=== PATIENT | male | born 1960 ===

== ENCOUNTER 2018-03-11 20:11 | Emergency (ER) | payer BC ==
[2018-03-11 20:19] VITALS: O2SAT 98
--- NOTE | 2018-03-11 20:38 | ED PDOC ---
HPI: Trauma/Fall - HPI Time Seen by Provider: 03/11/18 20:21 Chief Complaint (Nursing): Trauma Chief Complaint (Provider): Right Rib Pain, Knee pain History Per: Patient History/Exam Limitations: no limitations Onset/Duration Of Symptoms: Days (x7) Additional Complaint(s): 57 year old male presents to the ED complaining of right sided rib pain and right sided knee pain since last Sunday. Patient states he tripped over some shovels on the floor while at work and fell on his right side. He reports he stopped the fall with his hands and denies head injury or LOC. Persistent symptoms prompted visit. His last dose of Advil was Sunday night with minimal relief. PMD: Gurmeet Tse Past Medical History Reviewed: Historical Data, Nursing Documentation, Vital Signs Vital Signs: Last Vital Signs Temp 98 F 03/11/18 22:02 Pulse 76 03/11/18 22:02 Resp 18 03/11/18 22:02 BP 122/76 03/11/18 22:02 Pulse Ox 98 03/13/18 13:48 - Medical History PMH: Diabetes - Surgical History Other surgeries: Right knee surgery (microscopy) - Family History Family History: States: Unknown Family Hx - Social History Current smoker - smoking cessation education provided: No Alcohol: Social Drugs: Denies - Home Medications Home Medications: Ambulatory Orders Medication Instructions Recorded Acetaminophen [Acetaminophen 8 650 mg PO Q8 PRN #21 tablet.er 03/11/18 Hour] Meloxicam [Mobic] 15 mg PO DAILY PRN #20 tab 03/11/18 - Allergies Allergies/Adverse Reactions: Allergies Allergy/AdvReac Type Severity Reaction Status Date / Time No Known Allergies Allergy Verified 03/11/18 20:19 Review of Systems ROS Statement: Except As Marked, All Systems Reviewed And Found Negative Musculoskeletal: Positive for: Other (Right rib and knee pain) Neurological: Negative for: Other (LOC) Physical Exam - Reviewed Nursing Documentation Reviewed: Yes Vital Signs Reviewed: Yes - Physical Exam Comments: GENERAL APPEARANCE: Patient is awake, alert, oriented x 3, in no acute distress. Resting comfortably and speaking full sentences. SKIN: Warm, dry; (-) cyanosis. ENMT: Mucous membranes moist. Nose: (-) tenderness. No oral trauma. Pharynx clear, uvula midline. Airway patent: (-) stridor. Full ROM of mandible without pain. CHEST AND RESPIRATORY: Diffuse tenderness to anterior right ribs; no ecchymosis or palpable deformity. Lungs: Respirations even nonlabored (-) rales, (-) rhonchi, (-) wheezes; breath sounds equal bilaterally. HEART AND CARDIOVASCULAR: (-) irregularity ABDOMEN AND GI: Soft; (-) tenderness (-) guarding (-) distention. EXTREMITIES: Right knee: Tenderness to the lateral aspect of the right knee; no effusion, skin break, erythema, or crepitus; full ROM with pain on flexion; no instability on valgus stress or varus stress; negative anterior or posterior drawer sign. Sensation intact throughout. (+) distal pulses NEURO AND PSYCH: Mental status as above. Gait: steady. Speech: clear. (-) facial asymmetry (-) focal deficits. Strength 5/5 to bilateral lower extremities. - ECG O2 Sat by Pulse Oximetry: 98 (RA) Pulse Ox Interpretation: Normal Medical Decision Making Medical Decision Making: Initial Impression: Acute knee and rib pain s/p fall; contusions Initial Plan: --Right knee X-ray --Right rib and chest X-ray --Toradol 30mg IM 21:40 Right knee X-ray showed no acute fracture (+) DJD. Right rib and chest X-ray showed no acute fracture. Patient notified official radiology read which will be available within 24 hours. Patient will be notified of any discrepancies via phone. 2200 On re-evaluation, patient reports improvement of symptoms. On exam, patient remains AAOx3, in no acute distress. Lungs clear to auscultation, cardiac RRR, repeat neuro exam shows no focal findings. Vitals stable. RICE encouraged. Lab/Diagnostic results d/w the patient in great detail. Diagnosis of acute knee and rib pain s/p fall, contusion d/w the patient. Based on history, exam and diagnostic results, plan will be for outpatient follow up with PMD/ortho. Patient instructed to follow-up with pmd / referral provided / the clinic in 1- 2 days without fail. Advised to take medication as prescribed. Return to the emergency room at any time for any new or worsening symptoms. Patient states he fully agrees with and understands discharge instructions. States that he agrees with the plan and disposition. Verbalized and repeated discharge instructions and plan. I have given the patient opportunity to ask any additional questions. Scribe Attestation: Documented by Gino Gooden acting as a scribe for Concetta BROWN. Provider Scribe Attestation: All medical record entries made by the Scribe were at my direction and personally dictated by me. I have reviewed the chart and agree that the record accurately reflects my personal performance of the history, physical exam, medical decision making, and the department course for this patient. I have also personally directed, reviewed, and agree with the discharge instructions and disposition. Disposition - Clinical Impression Clinical Impression: Acute knee pain, Osteoarthritis of knee, Rib contusion, Chest wall pain, Fall - Patient ED Disposition Is Patient to be Admitted: No Counseled Patient/Family Regarding: Studies Performed, Diagnosis, Need For Followup, Rx Given - Disposition Referrals: Fly Love MD [Medical Doctor] - Disposition: Routine/Home Disposition Time: 22:01 Condition: STABLE Additional Instructions: The emergency medical care you received today was directed at your acute symptoms. If you were prescribed any medication, please fill it and take as directed. It may take several days for your symptoms to resolve. Return to the Emergency Department if your symptoms worsen, do not improve, or if you have any other problems. Please contact your doctor in 2 days for re-evaluation and follow up / or call one of the physicians/clinics you have been referred to that are listed on the Patient Visit Information form that is included in your discharge packet. Bring any paperwork you were given at discharge with you along with any medications you are taking to your follow up visit. Our treatment cannot replace ongoing medical care by a primary care provider (PCP) outside of the emergency department. Prescriptions: Acetaminophen [Acetaminophen 8 Hour] 650 mg PO Q8 PRN #21 tablet.er PRN Reason: Pain, Moderate (4-7) Meloxicam [Mobic] 15 mg PO DAILY PRN #20 tab PRN Reason: Pain, Moderate (4-7) Instructions: Osteoarthritis, Contusion (DC), Bruised Rib, Knee Pain Forms: [facility] (Guatemalan) Print Language: GERMAN - POA Present On Arrival: Falls Or Trauma
[2018-03-11 22:03] VITALS: BP 122/76; PULSE 76; RESP 18; TEMP 98
--- NOTE | 2018-03-12 12:35 | RAD ---
Date of service: 03/11/2018 PROCEDURE: Radiographs of the Chest and Right Ribs. HISTORY: s/p fall COMPARISON: None available. TECHNIQUE: Frontal radiograph of the chest and multiple oblique radiographs of the right ribs were obtained. FINDINGS: RIGHT RIBS: No fracture or focal lesion visualized. LUNGS: The lungs are well inflated and clear. There is a tiny calcified granuloma in the left upper lobe. PLEURA: No pneumothorax or pleural fluid. CARDIOVASCULAR: Normal sized heart. No pulmonary vascular congestion. OTHER FINDINGS: None. IMPRESSION: Unremarkable radiographs of the chest and right ribs. No right rib fracture.
--- NOTE | 2018-03-12 12:35 | RAD ---
Date of service: 03/11/2018 PROCEDURE: Right Knee Radiographs. HISTORY: s/p fall, joint pain COMPARISON: None. FINDINGS: BONES: Bone alignment is normal. There is diffuse bone demineralization.There is no acute displaced fracture or bone destruction. JOINTS: There is severe tricompartmental degenerative osteoarthrosis with reduced joint spaces, marginal osteophytes and tibial spiking, worse in the lateral compartment. JOINT EFFUSION: Small suprapatellar joint effusion. OTHER FINDINGS: There is calcification in the lateral collateral ligament.. IMPRESSION: Severe tricompartmental degenerative osteoarthrosis, worse in the lateral compartment. Small suprapatellar joint effusion.
== END 2018-03-11 22:57 | disposition home or self-care (01) ==
LOC: H.ER 20:11
DX: M25.561 Pain in right knee (principal); M17.10 Unilateral primary osteoarthritis, unspecified knee; S20.219A Contusion of unspecified front wall of thorax, initial encounter; R07.81 Pleurodynia; E11.9 Type 2 diabetes mellitus without complications; W01.0XXA Fall on same level from slipping, tripping and stumbling without subsequent striking against object, initial encounter
CPT/HCPCS: 71101; 73562; 96372; 99283; J1885